=== PATIENT | male | born 1975 | race Caucasian/White ===

== ENCOUNTER 2025-03-09 15:24 | Emergency (ER) | payer MEDICARE, OTHER ==
[~2025-03-09] VITALS: Ht 172.7 cm; Wt 77.1 kg
[2025-03-09] MEDS ORDERED: diphenhydrAMINE 50 MG/1 ML VIAL ONE (15:34)
[2025-03-09] MEDS ORDERED: LORAZEPAM 2 MG/1 ML VIAL ONE (15:35)
[2025-03-09] MEDS ORDERED: HALOPERIDOL LACTATE 5 MG/1 ML VIAL ONE ×2 (15:35→17:26)
[2025-03-09] MEDS: LORAZEPAM 2 MG/1 ML VIAL IM ONE (15:40)
[2025-03-09] MEDS: HALOPERIDOL LACTATE 5 MG/1 ML VIAL IM ONE ×3 (15:40→20:42)
[2025-03-09] MEDS: diphenhydrAMINE 50 MG/1 ML VIAL IM ONE (15:40)
[2025-03-09] MEDS ORDERED: OLANZAPINE 10 MG VIAL IM ONE (19:31)
[2025-03-09] MEDS ORDERED: MIDAZOLAM HCL 2 MG/2 ML VIAL ONE (19:31)
[2025-03-09] MEDS: OLANZAPINE 10 MG VIAL IM ONE (19:37)
[2025-03-09] MEDS: MIDAZOLAM HCL 2 MG/2 ML VIAL IM ONE ×2 (19:37→20:43)
[2025-03-09] MEDS: IV NORMAL SALINE 500 ML BAG IV ONE (20:16)
[2025-03-09 20:20] LABS: PLATELET COUNT (AUTO) 199 K/uL (152-348); RED BLOOD CELL COUNT(AUTO) 4.71 MIL/uL (4.06-5.63); RED CELL DISTRIBUTION WIDTH 14.0 % (12.1-16.2); WHITE BLOOD COUNT (AUTO) 7.0 K/uL (3.6-10.2)
[2025-03-09 20:34] LABS: *BILIRUBIN,URIN NEGATIVE (NEGATIVE); *BLOOD, URINE NEGATIVE (NEGATIVE); *CLARITY,URINE CLEAR (CLEAR); *COLOR,URINE YELLOW (YELLOW); *KETONES,URINE NEGATIVE (NEGATIVE); *PROTEIN,URINE NEGATIVE (NEGATIVE); *UROBILINOGEN,URINE 0.2 E.U./dl (NORMAL); CREATININE 0.6 mg/dL (0.6-1.3); LEUKOCYTE ESTERASE ,URINE NEGATIVE (NEGATIVE); NITRITE, URINE NEGATIVE (NEGATIVE); SODIUM SERUM 139 mmol/L (136-145); UGLUCOSE NEGATIVE (NEGATIVE); UREA NITROGEN, BLOOD 10 mg/dL (7-18)
[2025-03-09] MEDS ORDERED: MIDAZOLAM HCL 10 MG/2 ML VIAL ONE (20:37)
[2025-03-09 20:38] LABS: ASPARTATE AMINOTRANSFERASE 36 U/L (15-37); TOTAL PROTEIN, SERUM 7.4 g/dL (6.4-8.2)
[2025-03-09 20:41] LABS: *AMPHETAMINE, URINE NEGATIVE (NEGATIVE); *BARBITURATE, URINE NEGATIVE (NEGATIVE); *BENZODIAZEPINE, URINE NEGATIVE (NEGATIVE); *CANNABINOID, URINE NEGATIVE (NEGATIVE); *COCCAINE, URINE NEGATIVE (NEGATIVE); *OPIATE, URINE NEGATIVE (NEGATIVE); *PHENCYCLIDINE SCREEN,URINE NEGATIVE (NEGATIVE); FENTANYL, URINE NEGATIVE (NEGATIVE)
[2025-03-10] MEDS ORDERED: LORAZEPAM 2 MG/1 ML VIAL ONE (03:53)
[2025-03-10] MEDS: LORAZEPAM 2 MG/1 ML VIAL IM ONE (03:57)
[2025-03-10] MEDS ORDERED: OLANZAPINE 10 MG VIAL IM PRN ×2 (14:30→17:45)
[2025-03-10] MEDS ORDERED: ACETAMINOPHEN 500 MG TABLET ONE (14:49)
[2025-03-10] MEDS: ACETAMINOPHEN 500 MG TABLET PO ONE (14:55)
[2025-03-10] MEDS ORDERED: OLANZAPINE 5 MG TABLET ONE ×2 (15:31→22:59)
[2025-03-10] MEDS: OLANZAPINE 5 MG TABLET PO PRN (15:34)
[2025-03-11] MEDS ORDERED: LORAZEPAM 1 MG TABLET ONE (00:56)
[2025-03-11] MEDS: LORAZEPAM 0.5 MG TABLET PO ONE (00:58)
[2025-03-11] MEDS ORDERED: OLANZAPINE 5 MG TABLET ONE (10:54)
[2025-03-11] MEDS ORDERED: diphenhydrAMINE 50 MG/1 ML VIAL ONE (17:33)
[2025-03-11 22:28] VITALS: BP 152/105; O2SAT 96
== END 2025-03-11 23:04 ==
LOC: ER 16:04
DX: S00.83XA Contusion of other part of head, initial encounter (principal); F23 Brief psychotic disorder; F25.0 Schizoaffective disorder, bipolar type; J32.0 Chronic maxillary sinusitis; Z20.822 Contact with and (suspected) exposure to COVID-19; Z65.3 Problems related to other legal circumstances; Z59.00 Homelessness unspecified; W22.01XA Walked into wall, initial encounter; Y93.89 Activity, other specified; Y92.89 Other specified places as the place of occurrence of the external cause; Y99.8 Other external cause status
CPT/HCPCS: 99285; 70450; 87426; 80076; 80048; 85025; 36415; 93005; 80299; 80307; 96372 ×3; 98960; 81003; J1200; J1630 ×3; J2060 ×2; J2250 ×2; A4606; A4663; A9150; C1758; J2358